=== PATIENT | female | born 1935 | race Caucasian/White ===

== ENCOUNTER 2017-03-20 11:17 | Day surgery (SDC) | payer MEDICARE, OTHER ==
[2017-03-14 11:11] LABS: HEMATOCRIT 39.7 % (36.0-47.0); HEMOGLOBIN 13.4 g/dL (12.0-15.5); MEAN CORPUSCULAR HGB CONC 33.8 g/dL (32.0-36.0); MEAN CORPUSCULAR VOLUME 89 fl (80-97); PLATELET COUNT 245 10^3/uL (150-450); RED BLOOD COUNT 4.47 10^6/uL (3.72-5.28); RED CELL DISTRIBUTION WIDTH 14.1 % (11.5-14.0); WHITE BLOOD COUNT 7.8 10^3/uL (4.0-10.5)
[2017-03-14 11:21] LABS: APPEARANCE,URINE CLEAR; BILIRUBIN,URINE NEGATIVE (NEGATIVE); COLOR,URINE STRAW; GLUCOSE, URINE NEGATIVE (NEGATIVE); KETONES,URINE NEGATIVE (NEGATIVE); LEUKOCYTE ESTERASE,URINE MODERATE (NEGATIVE); NITRITE,URINE NEGATIVE (NEGATIVE); PROTEIN,URINE NEGATIVE (NEGATIVE); URINE SPECIFIC GRAVITY 1.005; UROBILINOGEN,URINE NEGATIVE mg/dL (<2.0)
--- NOTE | 2017-03-14 11:21 | EKG REPORT ---
SEVERITY:- ABNORMAL ECG - SINUS RHYTHM LEFT BUNDLE BRANCH BLOCK : Confirmed by: Andrea Graf 14-Mar-2017 11:20:21
--- NOTE | 2017-03-14 14:40 | RADIOLOGY REPORT (SQ) ---
EXAM DESCRIPTION: CHEST PA/LATERAL COMPLETED DATE/TIME: 03/14/2017 12:07 pm REASON FOR STUDY: PRE-OP COMPARISON: None. EXAM PARAMETERS: NUMBER OF VIEWS: two views TECHNIQUE: Digital Frontal and Lateral radiographic views of the chest acquired. RADIATION DOSE: NA LIMITATIONS: none FINDINGS: LUNGS AND PLEURA: No opacities, masses or pneumothorax. No pleural effusion. MEDIASTINUM AND HILAR STRUCTURES: No masses or contour abnormalities. HEART AND VASCULAR STRUCTURES: Heart normal size. No evidence for failure. BONES: No acute findings. HARDWARE: None in the chest. OTHER: No other significant finding. IMPRESSION: NO SIGNIFICANT RADIOGRAPHIC FINDING IN THE CHEST. TECHNICAL DOCUMENTATION: JOB ID: [id number] [employer]- All Rights Reserved
[~2017-03-20 11:17] MED LIST: LACTATED RINGERS 1000 ML IV PRN; LIDOCAINE 0.5% INJ-PF (5 MG/ML) 50 ML SDV SUBCUT PRN; LIDOCAINE 1%/EPINEPHRINE INJ 20 ML VIAL ONE; LIDOCAINE 2% INJ-PF (20 MG/ML) 2 ML AMPUL ONE; ONDANSETRON HCL INJ/PF 4 MG/2 ML SDV ONE
[2017-03-20] MEDS ORDERED: FENTANYL CITRATE INJ/PF 100 MCG/2 ML AMPUL ONE (13:00)
[2017-03-20] MEDS ORDERED: PROPOFOL INJ 200 MG/20 ML VIAL IV ONE (13:01)
[2017-03-20] MEDS ORDERED: EPHEDRINE SULFATE INJ 50 MG/1 ML AMPULE ONE (13:01)
[2017-03-20] MEDS ORDERED: MIDAZOLAM 2 MG/2 ML INJ ONE (13:01)
[2017-03-20] MEDS ORDERED: ACETAMINOPHEN 100 ML IV ONE (13:01)
[2017-03-20] MEDS ORDERED: DIPHENHYDRAMINE HCL 50 MG/ML VIAL IV PRN (13:39)
[2017-03-20] MEDS ORDERED: ONDANSETRON HCL INJ/PF 4 MG/2 ML SDV IV PRN (13:39)
[2017-03-20] MEDS ORDERED: MEPERIDINE HCL/PF INJ 25 MG/1 ML DISP.SYRIN IV PRN (13:39)
[2017-03-20] MEDS ORDERED: OXYCODONE-ACETAMINOPHEN 5-325 MG TABLET PO PRN ×3 (13:39→14:48)
[2017-03-20] MEDS ORDERED: PROMETHAZINE HCL INJ 25 MG/1 ML VIAL IV PRN ×2 (13:39)
[2017-03-20] MEDS ORDERED: FENTANYL CITRATE INJ/PF 100 MCG/2 ML AMPUL IV PRN ×3 (13:39)
[2017-03-20] MEDS ORDERED: SILVER SULFADIAZINE 1% CREAM 25 GM ONE (14:02)
[2017-03-20] MEDS ORDERED: MORPHINE SULFATE 10 MG/ML INJ IM PRN (14:47)
[2017-03-20] MEDS ORDERED: IBUPROFEN 800 MG TABLET PO PRN (14:47)
[2017-03-20] MEDS ORDERED: RINGERS SOLUTION,LACTATED 1,000 ML IV PRN (14:47)
[2017-03-20 16:35] VITALS: BP 126/59
--- NOTE | 2017-04-08 13:53 | OPERATIVE REPORT E ---
Operative Report NAME: STEFFEN ARNOLD : 1935 AGE: 81Y DATE OF SURGERY: 03/20/2017 ROOM: PREOPERATIVE DIAGNOSIS: PERSISTENT VAGINAL LESION. POSTOPERATIVE DIAGNOSIS: VAGINAL INTRAEPITHELIAL NEOPLASIA. OPERATION: Wide local excision. SURGEON: BEVERLY TELLO M.D. ANESTHESIA: Bentley Acevedo MD, with LMA. 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 ESTIMATED BLOOD LOSS: 20 mL. PROCEDURE: Patient was taken to the operating room, prepared and draped in normal sterile fashion, in dorsolithotomy position, under LMA anesthesia. The labia was then injected around the lesion with approximately 20 mL of lidocaine 1% with epi. The borders of the lesion were noted with a marker and the outline was drawn with a surgical marker approximately 1 cm completely around the lesion. Following this line, I scored the outline with a 15 blade and proceeded to excise the lesion using the 10 blade, carefully undermining the underlying tissues and trying to maintain a depth of at least 5 mm below the lesion. The lesion was then passed off in its entirety, and 12 o'clock was marked with a silk tie, while pressure was applied by my gift shop assistant to the defect. I then reinspected the defect and began closing the defect in approximately 3 layers using first 2-0 Vicryl at the deepest layer and then 3-0 Vicryl at the secondary layer and then 4-0 Vicryl interrupted on the skin until the defect was completely closed. Hemostasis was obtained with these closures. The patient tolerated the procedure well. Sponge, lap and needle counts were correct x2. The patient was taken down from position and taken to recovery in stable condition. DICTATING PHYSICIAN: BEVERLY TELLO M.D. [id number] PHY#: [id number] ID: [id number] JOB#: [id number] ACCT: [id number] cc:BEVERLY TELLO M.D. >
== END 2017-03-20 16:10 | disposition home or self-care (01) ==
LOC: OROUT 11:17
PROVIDERS: ATTEND Obstetrics & Gynecology
PROC: 0UBM0ZZ Excision of Vulva, Open Approach (ICD-10-PCS; principal; 2017-03-20 13:30)
DX: C52 Malignant neoplasm of vagina (principal); I10 Essential (primary) hypertension; E03.9 Hypothyroidism, unspecified; R73.03 Prediabetes; I48.91 Unspecified atrial fibrillation; Z88.8 Allergy status to other drugs, medicaments and biological substances; Z79.899 Other long term (current) drug therapy; Z79.82 Long term (current) use of aspirin; Z85.828 Personal history of other malignant neoplasm of skin; Z87.891 Personal history of nicotine dependence
CPT/HCPCS: 93005; 36415; 85027; 81001; 88307 ×2; 71020; 93010; 56620; J2250; J3010; J3490 ×2; J2405; J2704; A9270; J0131; 940

== ENCOUNTER 2017-09-25 11:29 | Day surgery (SDC) | payer MEDICARE, OTHER ==
[2017-09-15 12:43] LABS: HEMATOCRIT 41.9 % (36.0-47.0); HEMOGLOBIN 14.2 g/dL (12.0-15.5); MEAN CORPUSCULAR HEMOGLOBIN 30.1 pg (27.0-33.4); MEAN CORPUSCULAR HGB CONC 33.7 g/dL (32.0-36.0); MEAN CORPUSCULAR VOLUME 89 fl (80-97); PLATELET COUNT 221 10^3/uL (150-450); RED CELL DISTRIBUTION WIDTH 14.2 % (11.5-14.0)
[2017-09-15 12:52] LABS: APPEARANCE,URINE CLEAR; BILIRUBIN,URINE NEGATIVE (NEGATIVE); COLOR,URINE YELLOW; GLUCOSE, URINE NEGATIVE (NEGATIVE); KETONES,URINE NEGATIVE (NEGATIVE); LEUKOCYTE ESTERASE,URINE NEGATIVE (NEGATIVE); NITRITE,URINE NEGATIVE (NEGATIVE); PROTEIN,URINE NEGATIVE (NEGATIVE); URINE SPECIFIC GRAVITY 1.011; UROBILINOGEN,URINE NEGATIVE mg/dL (<2.0)
--- NOTE | 2017-09-15 13:26 | EKG REPORT ---
SEVERITY:- ABNORMAL ECG - SINUS RHYTHM LEFT BUNDLE BRANCH BLOCK : Confirmed by: Feliz Jones MD 15-Sep-2017 13:26:24
[~2017-09-25 11:29] MED LIST changes: -LIDOCAINE 2% INJ-PF (20 MG/ML) 2 ML AMPUL ONE; -ONDANSETRON HCL INJ/PF 4 MG/2 ML SDV ONE
[2017-09-25] MEDS ORDERED: PROPOFOL INJ 200 MG/20 ML VIAL IV ONE (13:25)
[2017-09-25] MEDS ORDERED: MIDAZOLAM 2 MG/2 ML INJ ONE (13:25)
[2017-09-25] MEDS ORDERED: DIPHENHYDRAMINE HCL 50 MG/ML VIAL IV PRN (14:13)
[2017-09-25] MEDS ORDERED: PROMETHAZINE HCL INJ 25 MG/1 ML VIAL IV PRN ×2 (14:13)
[2017-09-25] MEDS ORDERED: MEPERIDINE HCL/PF INJ 25 MG/1 ML DISP.SYRIN IV PRN (14:13)
[2017-09-25] MEDS ORDERED: FENTANYL CITRATE INJ/PF 100 MCG/2 ML AMPUL IV PRN ×3 (14:13)
[2017-09-25] MEDS ORDERED: OXYCODONE-ACETAMINOPHEN 5-325 MG TABLET PO PRN ×4 (14:13→15:03)
[2017-09-25] MEDS ORDERED: RINGERS SOLUTION,LACTATED 1,000 ML IV PRN ×2 (15:03→15:12)
[2017-09-25] MEDS ORDERED: IBUPROFEN 800 MG TABLET PO PRN (15:03)
[2017-09-25] MEDS ORDERED: MORPHINE SULFATE 10 MG/ML INJ IV PRN (15:12)
[2017-09-25 16:33] VITALS: BP 109/52
--- NOTE | 2017-09-25 17:10 | OPERATIVE REPORT E ---
Operative Report NAME: STEFFEN ARNOLD : 1935 AGE: 82Y DATE OF SURGERY: 09/25/2017 ROOM: PREOPERATIVE DIAGNOSIS: Vulvar lesion and personal history of vulvar carcinoma. POSTOPERATIVE DIAGNOSIS: Vulvar lesion and personal history of vulvar carcinoma. SURGEON: BEVERLY TELLO M.D. ANESTHESIA: Dr. Acevedo with MAC. FINDINGS: Thickened hyperkeratotic plaque of the posterior introitus. COMPLICATIONS: None. ESTIMATED BLOOD LOSS: 10 mL. SPECIMENS REMOVED: Vulvar lesion. PROCEDURE: Wide local excision. PROCEDURE IN DETAIL: The patient was taken to the operating room and prepared and draped in a normal sterile fashion in the dorsal lithotomy position. Approximately 10 mL of lidocaine with epinephrine was injected underneath the lesion and the lesion was then scored with approximately a 3-[address] edge [address] the way around using a 15 blade. The lesion was then removed completely using the 15 blade and undermining the mucosa as needed. The lesion was then passed off the field. The defect was then closed in an imbricating type fashion with 4-0 Vicryl and the skin was closed with a 4-0 Vicryl running stitch. The wound was then dressed with bacitracin. The patient tolerated the procedure well. Sponge, lap, and needle counts were correct x2 and the patient was then taken to recovery in stable condition. DICTATING PHYSICIAN: BEVERLY TELLO M.D. [id number] PHY#: [id number] [id number] JOB#: [id number] ACCT: [id number] cc:BEVERLY TELLO M.D. >
== END 2017-09-25 16:33 | disposition home or self-care (01) ==
LOC: OROUT 11:29
PROVIDERS: ATTEND Obstetrics & Gynecology
DX: N90.1 Moderate vulvar dysplasia (principal); E03.9 Hypothyroidism, unspecified; I10 Essential (primary) hypertension; I48.91 Unspecified atrial fibrillation; Z85.44 Personal history of malignant neoplasm of other female genital organs; Z87.891 Personal history of nicotine dependence; Z79.899 Other long term (current) drug therapy; Z88.8 Allergy status to other drugs, medicaments and biological substances; Z85.828 Personal history of other malignant neoplasm of skin; Z79.82 Long term (current) use of aspirin
CPT/HCPCS: 93005; 36415; 85027; 81005; 88307 ×2; 93010; 56620; J2250; J3490; J2704; 940

== ENCOUNTER → 2019-03-10 | Outpatient (CLI) | payer MEDICARE, OTHER | LOC: OD 10:59 | PROVIDERS: ATTEND Otolaryngology | DX: J30.9 Allergic rhinitis, unspecified (principal) | CPT/HCPCS: 36415; 82785; 86003 ==